=== PATIENT | female | born 1980 | race Asian ===

== ENCOUNTER → 2017-06-08 | Outpatient (CLI) | payer OTHER ==
[~2017-06-08] MED LIST: PRENTAB26 PO
== END | disposition home or self-care (01) ==
LOC: C.LABSPEC 15:08
PROVIDERS: ATTEND Obstetrics & Gynecology
DX: Z01.419 Encounter for gynecological examination (general) (routine) without abnormal findings (principal)

== ENCOUNTER 2019-06-17 04:03 | Inpatient (IN) ==
[2019-06-17] MEDS ORDERED: LACTATED RINGER'S 1,000 ML IV PRN (04:19)
[2019-06-17] MEDS ORDERED: OXYTOCIN 30 UNITS/500 ML BAG IV PRN ×2 (04:19→06:06)
[2019-06-17] MEDS ORDERED: PENICILLIN G POTASSIUM 6 MU in DEXTROSE 5% 250 ML IV STA (04:19)
[2019-06-17] MEDS ORDERED: PENICILLIN G POTASSIUM 3 MU in DEXTROSE 5% 100 ML IV PRN (04:19)
[2019-06-17 04:49] LABS: Hematocrit (blood only) 40.1 % (37-47); Hemoglobin 13.7 g/dL (12.0-16.0); Mean Corpuscular Hemoglobin 31.1 pg (25-34); Mean Corpuscular Volume 90.9 fL (80-100); Platelet Count 255 K/uL (130-400); RDW Coefficient of Variation 13.2 % (11.5-14.5); Red Blood Count 4.41 M/uL (4.2-5.4); White Blood Count 11.78 K/uL (4.8-10.8)
[2019-06-17 05:16] LABS: Mean Corpuscular Hgb Conc 34.2 g/dL (32-36)
[2019-06-17] MEDS ORDERED: OXYCODONE/ACETAMINOPHEN 5mg/325mg TAB PO PRN (05:36)
[2019-06-17] MEDS ORDERED: ACETAMINOPHEN 325 MG TAB PO PRN (05:36)
[2019-06-17] MEDS ORDERED: IBUPROFEN 600 MG TAB PO PRN (05:36)
--- NOTE | 2019-06-17 05:41 | History & Physical Report ---
Date of Service June 17, 2019 Assessment & Plan (1) Diet controlled gestational diabetes mellitus (GDM), antepartum: (2) Supervision of elderly multigravida: (3) Carrier of group B Streptococcus: (4) resulting from in vitro fertilization: admit, attempt to treat for gbs but actively laboring at 8-9cm. fetus reassuring, anticipate . History of Present Illness Chief Complaint: contractions Primary Care Provider: NO PCP LATE ENTRY Patient is a at who called me at about 3 noting she had three contractions. Called back at 3:30 nothing much more uncomfortable. notes no lof/vb. +fm. complicated by gbs+, AMA, and diet controlled GDM. this was an IVF (not icsi). Nl echo, nl growth us, weekly reactive nsts. labs--AB+/ab-/ri/rprnr/hepb-/hiv-/ gc/ct-/ panorama low risk female/ gbs + Allergies Allergy/AdvReac Type Severity Reaction Status Date / Time No Known Drug Allergies Allergy Unknown Verified 06/17/19 04:35 Home Medications Home Medications Medication Instructions Recorded Confirmed Type prenat.vits,remigio,jjp-nlem-kinvj 1 tab PO DAILY 11/16/18 06/17/19 History acetone (urine) test #50 ea 11/17/18 06/12/19 Rx blood sugar diagnostic #100 ea 11/17/18 06/12/19 Rx blood-glucose meter #1 ea 11/17/18 06/12/19 Rx lancets #102 ea 11/17/18 06/12/19 Rx docusate sodium [Colace] 100 mg PO DAILY 06/17/19 06/17/19 History Patient History Medical History (Updated 06/17/19 @ 05:43 by Zoraida Cordova MD, FACOG) screening for malformation using ultrasonics (Resolved) Carrier of group B Streptococcus Diet controlled gestational diabetes mellitus (GDM), antepartum History of gestational diabetes History of varicella resulting from in vitro fertilization (Acute) Supervision of elderly multigravida (Acute) Surgical History (Updated 06/17/19 @ 05:43 by Zoraida Cordova MD, FACOG) No history of previous surgery Social History (Updated 11/16/18 @ 11:10 by Yue Vidal MD) marital status: Current Living Situation: Spouse Current Living Situation Comment: Child, no pets current occupational status: employed 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 Feels Safe at Home: Yes Smoking Status: Never smoker Hx Alcohol Use: No Hx Substance Use: No Childhood Exposure to Second-Hand Smoke: No OB History G1--05/27, , 39 weeks, 6#12oz, 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 History no stds, no abnl paps Review of Systems All systems reviewed & are unremarkable except as noted in HPI & below Physical Exam Constitutional: WD/WN, vitals as above Gastrointestinal (Abdomen): soft, gravid Psychiatric: A+Ox3, euthymic affect Genitourinary: cx--8-9/100/0 toco--q 2-3 min efm--category one strip cannot appreciate membranes Results & Data Vital Signs (Past 12 Hours) Vital Signs Temp Pulse Resp BP 06/17/19 05:34 82 115/59 L 06/17/19 05:19 89 113/59 L 06/17/19 04:08 36.4 C L 75 20 107/56 L Code Status & VTE Plan VTE Prophylaxis Plan VTE Prophylaxis will be ordered: No Coding Level of Care Code None Diagnoses Diet controlled gestational diabetes mellitus (GDM), antepartum O24.410 Supervision of elderly multigravida O09.529 Carrier of group B Streptococcus Z22.330 resulting from in vitro fertilization O09.819
--- NOTE | 2019-06-17 05:48 | Delivery Summary ---
Vaginal Delivery Summary Date of Service June 17, 2019 Vaginal Delivery Summary Pre-operative Diagnosis: 39 2/7 weeks labor ivf ama diet controlled gdm Post-operative Diagnosis: same Procedure: second degree laceration with repair EBL: 300cc Anesthesia: local infiltration of lidocaine to the perineum Procedure: The patient pushed for about 15 min to deliver a viable female in ekta position. The nose and mouth were bulb suctioned on the perineum and the rest of the was then delivered without difficulty. The baby was vigorous. The nose and mouth were again bulb suctioned and the was placed in the maternal abdomen for drying and attention. Cord was clamped and cut at one minute of life. Cord blood and segment obtained. Placenta delivered into the vagina spontaneously and then the cord began to tear, so operaters hand placed into the vagina and placenta removed. It was intact with a three vessel cord and a large succinturate lobe. Cervix/sulci/rectum were intact. A second degree perineal laceration was repaired in the normal standard fashion after infiltrating the perineum with lidocaine. Hemostasis obtained with dilute pitocin and fundal massage. Apgars were 9/9. Mother and baby doing well at the end of the delivery.
[2019-06-17] MEDS ORDERED: bisacodyL 10 MG SUPP PR PRN (06:06)
[2019-06-17] MEDS ORDERED: SUPERCREAM 0.870% 15 GM JAR EXT PRN (06:06)
[2019-06-17] MEDS ORDERED: DIPHTHERIA/TETANUS/PERTUSSIS 0.5 ML SYR/VIAL IM ONE (06:06)
[2019-06-17] MEDS ORDERED: HYDROCORTISONE ACETATE 25 MG SUPP PR PRN (06:06)
[2019-06-17] MEDS: PRENATAL VITAMIN 1 TAB PO SCH (08:44)
[2019-06-17] MEDS: DOCUSATE SODIUM 100 MG CAP PO SCH ×2 (08:44→20:54)
[2019-06-17] MEDS: BENZOCAINE 20% AER SPR 82.5 GM CAN EXT PRN (14:28)
[2019-06-18 06:36] LABS: Hematocrit (blood only) 38.3 % (37-47); Hemoglobin 13.2 g/dL (12.0-16.0)
--- NOTE | 2019-06-18 08:01 | Obstetrical Progress Note ---
Date of Service June 18, 2019 Assessment & Plan (1) Supervision of elderly multigravida: - routine care, - doing well - questions answered Subjective Ambulation: ambulating normally Voiding: no voiding problems Diet Tolerance:: regular diet Physical Exam Constitutional WD/WN, vitals as above Gastrointestinal (Abdomen) Fundus firm below umbilicus Musculoskeletal No deep calf tenderness Results & Data Vital Signs (Past 12 Hours) Vital Signs Temp Pulse Resp BP Pulse Ox 06/18/19 07:40 97.3 F L 70 20 105/66 06/18/19 04:03 98.1 F 74 18 111/71 95 06/17/19 23:10 98.2 F 78 18 108/68 96 06/17/19 19:30 98.4 F 79 18 108/71
[2019-06-18] MEDS: PRENATAL VITAMIN 1 TAB PO SCH (08:17)
[2019-06-18] MEDS: DOCUSATE SODIUM 100 MG CAP PO SCH ×2 (08:17→20:55)
[2019-06-18] MEDS ORDERED: bisacodyL 5 MG TABEC PO SCH (20:00)
[2019-06-18 21:25] VITALS: O2SAT 97
--- NOTE | 2019-06-19 06:44 | Obstetrical Progress Note ---
Date of Service <Terri Calderon DO - Last Filed: 06/19/19 06:54> June 19, 2019 Assessment & Plan <Terri Calderon DO - Last Filed: 06/19/19 06:54> (1) Supervision of elderly multigravida: - PPD #1. - for discharge this AM; pt will follow up in 6 weeks for visit. - All questions answered and discharge instructions provided. Subjective <Terri Calderon DO - Last Filed: 06/19/19 06:54> John is a 39yo female ; PPD # 1 following vaginal delivery at 39.3weeks; doing well this AM; no abdominal cramping/pain; voiding well; tolerating meals overnight, able to ambulate some within the room. is going well with good latch and with minimal to no pain. Desires discharge today. Review of Systems Constitutional: denies fever, chills, sweats, headache Respiratory: denies SOB, difficulty breathing Cardiac: denies CP, chest palpitations, chest pressure : denies dysuria Physical Exam <Terri Calderon DO - Last Filed: 06/19/19 06:54> General: patient is alert and oriented, in NAD Cardiac: +S1/S2, no murmurs rubs or gallops Respiratory: lungs CTA b/l, anteriorly and posteriorly, no wheezes rales or rhonchi, no increased work of breathing, symmetric chest rise, no respiratory distress Abdomen: soft, NT, +bowel sounds Uterus: uterine fundus firm, palpable below the level of the umbilicus Lower Extremities: no LE edema or swelling, no deep calf pain, Prosper's sign negative b/l Results & Data <DO Nicholas Kim Last Filed: 06/19/19 06:54> Vital Signs (Past 12 Hours) Vital Signs Temp Pulse Resp BP Pulse Ox 06/18/19 23:05 36.5 C 71 18 120/74 97 06/18/19 19:10 36.6 C 81 18 115/72 97 Medications Administered Current Medications Acetaminophen (Tylenol) 650 mg PO Q6H PRN PRN Reason: Pain/VILLAVICENCIO/Fever Stop: 07/17/19 05:35 Benzocaine (Dermoplast Pain Relieving [place]) 1 appln EXT PRN PRN PRN Reason: Perineal Discomfort Stop: 07/17/19 06:05 Last Admin: 06/17/19 14:28 Dose: 1 appln Documented by: Bisacodyl (Dulcolax) 10 mg [place] DAILY PRN PRN Reason: No BM on 2nd post- day Stop: 07/17/19 06:05 Cocaine HCl (Supercream 0.870%) 1 gm EXT BID PRN PRN Reason: Hemorrhoidal Inflammation Stop: 07/01/19 06:05 Docusate Sodium (Colace) 100 mg PO DAILY@ [facility] Stop: 07/17/19 07:59 Last Admin: 06/18/19 20:55 Dose: 100 mg Documented by: Hydrocortisone (Anusol Hc) 25 mg [place] BID PRN PRN Reason: Hemorrhoidal Inflammation Stop: 07/17/19 06:05 Oxytocin (Pitocin) 30 units in 500 mls @ 333.333 mls/hr IV .Q1H30M PRN; Protocol PRN Reason: Bleeding Control Stop: 07/17/19 06:05 Last Admin: 06/17/19 06:31 Dose: 20 units/hr, 333.3 mls/hr Documented by: Ibuprofen (Motrin) 600 mg PO Q4H PRN PRN Reason: Pain/VILLAVICENCIO/Cramping/Fever Stop: 07/17/19 05:35 Oxycodone/Acetaminophen (Percocet 5mg/325mg) 1 tab PO Q4H PRN PRN Reason: Pain not relieved by... Stop: 07/01/19 05:35 Prenat Multivit/Esmond/Iron/Folic Ac ( Vitamin) 1 tab PO DAILY@ [facility] Stop: 07/17/19 07:59 Last Admin: 06/18/19 08:17 Dose: 1 tab Documented by: <Senthil Arreola Jr, MD, FACOG - Last Filed: 06/19/19 07:01> Co-Signing Physician Notes Resident Physician Supervision Note: I was present with Dr. White during the history and exam. I discussed the case with the resident and agree with the findings and plan as documented in the note. Any exceptions or clarifications are listed here: Doing well, pt ready for d/c. Instructions given, f/u in 6 weeks for a check. Documented By: Senthil Arreola Jr, MD, FACOG Resident Activity Tracking <Terri Calderon, DO - Last Filed: 06/19/19 06:54> Resident Involvement: Resident Care Provided Care Provided: OB Delivery
[2019-06-19] MEDS: PRENATAL VITAMIN 1 TAB PO SCH (08:15)
[2019-06-19] MEDS: DOCUSATE SODIUM 100 MG CAP PO SCH (08:15)
[2019-06-19 09:50] VITALS: PULSE 80; TEMP 97.9
[2019-06-19 10:10] VITALS: BP 110/70
[2019-06-19] MEDS: BENZOCAINE 20% AER SPR 82.5 GM CAN EXT PRN (10:56)
== END 2019-06-19 10:57 | disposition home or self-care (01) | DRG 807 ==
LOC: OPB 04:03 → 4S1 04:05 → 4S2 09:05